=== PATIENT | male | born 1970 | race Caucasian/White ===

== ENCOUNTER 2019-06-13 20:54 | Emergency (ER) | payer BC ==
[2019-06-13 21:04] VITALS: RESP 18; TEMP 98
[2019-06-13 21:13] LABS: Glucose,Whole Blood 109 mg/dL (75-99)
--- NOTE | 2019-06-13 21:47 | XR ---
EXAMINATION TYPE: XR chest 2V DATE OF EXAM: 06/13/2019 COMPARISON: None INDICATION: Chest pain TECHNIQUE: Frontal and lateral views of the chest are obtained. FINDINGS: The heart size is normal. The pulmonary vasculature is normal. The lungs are clear. IMPRESSION: 1. No acute pulmonary process.
[2019-06-13 21:49] LABS: Glucose,Whole Blood 100 mg/dL (75-99)
[2019-06-13 21:50] LABS: Basophils % (A) 0 %; Eosinophils # (A) 0.2 k/uL (0-0.7); Eosinophils % (A) 3 %; HCT 42.2 % (39.0-53.0); HGB 14.5 gm/dL (13.0-17.5); Lymphocytes # (A) 1.5 k/uL (1.0-4.8); Lymphocytes % (A) 20 %; MCH 30.2 pg (25.0-35.0); MCHC 34.3 g/dL (31.0-37.0); MCV 88.1 fL (80.0-100.0); Mean Platelet Volume 8.7; Monocytes # (A) 0.5 k/uL (0-1.0); Monocytes % (A) 7 %; Neutrophils % (A) 67 %; Platelet Count 276 k/uL (150-450); RBC 4.79 m/uL (4.30-5.90); RDW 12.7 % (11.5-15.5); WBC 7.5 k/uL (3.8-10.6)
[2019-06-13 21:52] LABS: ALT 29 U/L (4-49); AST 33 U/L (17-59); African American GFR (CKD) >90 (>60 ml/min/1.73 sqM); Albumin 4.3 g/dL (3.5-5.0); Alkaline Phosphatase 74 U/L (38-126); Anion Gap 9 mmol/L; Blood Urea Nitrogen 13 mg/dL (9-20); Calcium 8.8 mg/dL (8.4-10.2); Carbon Dioxide 24 mmol/L (22-30); Chloride 105 mmol/L (98-107); Glucose 101 mg/dL (74-99); Magnesium 2.1 mg/dL (1.6-2.3); Non-African American GFR(CKD) >90 (>60 ml/min/1.73 sqM); Potassium 3.9 mmol/L (3.5-5.1); Sodium 138 mmol/L (137-145); Total Bilirubin 0.8 mg/dL (0.2-1.3); Total Protein 6.8 g/dL (6.3-8.2)
[2019-06-13 21:59] LABS: Partial Thromboplastin Time 25.3 sec (22.0-30.0); Prothrombin Time 10.1 sec (9.0-12.0)
[2019-06-13 22:19] LABS: Glucose,Whole Blood 100 mg/dL (75-99)
--- NOTE | 2019-06-13 22:25 | ED ---
General Adult HPI - General Chief complaint: Chest Pain Stated complaint: Chest Flutter Time Seen by Provider: 06/13/19 21:05 Source: patient, EMS, RN notes reviewed, old records reviewed Mode of arrival: EMS - History of Present Illness Initial comments: 49-year-old male patient no pertinent past, history presents ED for evaluation of lightheadedness/weakness feeling. 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 He states that at work approximately 1.5 hours prior to presentation he began to feel somewhat dizzy, felt tired, felt that his vision was going in and out of focus. Patient reports he then sat down and as if his heart was racing, denies any chest pain or shortness of breath. Patient reports that he eats for the first time, sat down and called EMS. Was feeling some improvement time there arrived. At the time his blood sugar was 66. Patient was then transported to Hospital. Time of initial evaluation patient is feeling much improved. Systemic: Pt denies fatigue, fever/chills, rash. Pt denies weakness, night sweats, weight loss. Neuro: Pt denies headache, visual disturbances, syncope or pre-syncope. HEENT: Pt denies ocular discharge or irritation, otalgia, rhinorrhea, pharyngitis or notable lymphadenopathy. Cardiopulmonary: Pt denies chest pain, SOB, dyspnea on exertion. Abdominal/GI: Pt denies abdominal pain, n/v/d. : Pt denies dysuria, burning w/ urination, frequency/urgency. Denies new onset urinary or bowel incontinence. MSK: Pt denies myalgia, loss of strength or function in extremities. Neuro: Pt denies new onset weakness, paresthesias. - Related Data Allergies Allergy/AdvReac Type Severity Reaction Status Date / Time iodine AdvReac Anaphylaxis Verified 06/13/19 21:40 Review of Systems ROS Statement: Those systems with pertinent positive or pertinent negative responses have been documented in the HPI. ROS Other: All systems not noted in ROS Statement are negative. Past Medical History Past Medical History: Hypertension History of Any Multi-Drug Resistant Organisms: None Reported Past Surgical History: Orthopedic Surgery Additional Past Surgical History / Comment(s): hernia repair Past Psychological History: No Psychological Hx Reported Smoking Status: Never smoker Past Alcohol Use History: Daily Past Drug Use History: None Reported General Exam - General Exam Comments Initial Comments: Constitutional: NAD, AOX3, Pt has pleasant affect. HEENT: NC/AT, trachea midline, neck supple, no lymphadenopathy. Posterior pharynx non erythematous, without exudates. External ears appear normal, without discharge. Mucous membranes moist. Eyes PERRLA, EOM intact. There is no scleral icterus. No pallor noted. Cardiopulmonary: RRR, no murmurs, rubs or gallops, no JVD noted. Lungs CTAB in anterior and posterior lyons. No peripheral edema. Abdominal exam: Abdomen soft and non-distended. Abdomen non-tender to palpation in all 4 quadrants. Bowel sounds active in LLQ. No hepatosplenomegaly. No ecchymosis Neuro: CN II-XII intact. No nuchal rigidity. No raccon eyes, no echeverria sign, no hemotympanum. No cervical spinal tenderness. MSK: No posterior calf tenderness bilaterally, homans sign negative bilaterally. Posterior tibialis and radial pulse +2 bilaterally. Sensation intact in upper and lower extremities. Full active ROM in upper and lower extremities, 5/5 streg nth. Course Vital Signs 06/13/19 06/13/19 06/13/19 20:59 21:04 23:04 Temperature 98 F Pulse Rate 71 57 L Pulse Rate [ 76 Security Services Manager ] Respiratory 18 18 Rate Blood Pressure 138/84 126/85 O2 Sat by Pulse 98 98 Oximetry Medical Decision Making - Medical Decision Making 49-year-old male patient no pertinent past, history presents ED for evaluation of lightheadedness/weakness feeling. 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 He states that at work approximately 1.5 hours prior to presentation he began to feel somewhat dizzy, felt tired, felt that his vision was going in and out of focus. Patient reports he then sat down and as if his heart was racing, denies any chest pain or shortness of breath. Patient reports that he eats for the first time, sat down and called EMS. Was feeling some improvement time there arrived. At the time his blood sugar was 66. Patient was then transported to Hospital. Time of initial evaluation patient is feeling much improved. Pt VSS, afebrile. Physical exam displayed no acute pathology. EKG is nonischemic. Left investigations are obtained and are non- impressive. Patient declines CT of brain, is asymptomatic at time of physical exam. Patient's symptoms are likely hypoglycemic in nature. Patient was eating prior to EMS arrival his blood sugar was 66 at that time. Does report that he began to feel significant better after he began to eat crackers and jelly. And had not eaten prior to that. Patient will be discharged for follow-up with primary care provider tomorrow and will return to ER if condition worsens in any way. Case discussed in depth with Dr. Higgins. - Lab Data Result diagrams: 06/13/19 21:12 06/13/19 21:12 Lab Results 06/13/19 06/13/19 06/13/19 Range/Units 21:10 21:12 21:12 WBC 7.5 (3.8-10.6) k/uL RBC 4.79 (4.30-5.90) m/uL Hgb 14.5 (13.0-17.5) gm/dL Hct 42.2 (39.0-53.0) % MCV 88.1 (80.0-100.0) fL MCH 30.2 (25.0-35.0) pg MCHC 34.3 (31.0-37.0) g/dL RDW 12.7 (11.5-15.5) % Plt Count 276 (150-450) k/uL Neutrophils % 67 % Lymphocytes % 20 % Monocytes % 7 % Eosinophils % 3 % Basophils % 0 % Neutrophils # 5.0 (1.3-7.7) k/uL Lymphocytes # 1.5 (1.0-4.8) k/uL Monocytes # 0.5 (0-1.0) k/uL Eosinophils # 0.2 (0-0.7) k/uL Basophils # 0.0 (0-0.2) k/uL PT 10.1 (9.0-12.0) sec INR 1.0 (<1.2) APTT 25.3 (22.0-30.0) sec Sodium (137-145) mmol/L Potassium (3.5-5.1) mmol/L Chloride (98-107) mmol/L Carbon Dioxide (22-30) mmol/L Anion Gap mmol/L BUN (9-20) mg/dL Creatinine (0.66-1.25) mg/dL Est GFR (CKD-EPI)AfAm (>60 ml/min/1.73 sqM) Est GFR (CKD-EPI)NonAf (>60 ml/min/1.73 sqM) Glucose (74-99) mg/dL POC Glucose (mg/dL) 109 H (75-99) mg/dL POC Glu Installer Helper Laura Gerardo Calcium (8.4-10.2) mg/dL Magnesium (1.6-2.3) mg/dL Total Bilirubin (0.2-1.3) mg/dL AST (17-59) U/L ALT (4-49) U/L Alkaline Phosphatase (38-126) U/L Total Protein (6.3-8.2) g/dL Albumin (3.5-5.0) g/dL 06/13/19 06/13/19 06/13/19 Range/Units 21:12 21:47 22:17 WBC (3.8-10.6) k/uL RBC (4.30-5.90) m/uL Hgb (13.0-17.5) gm/dL Hct (39.0-53.0) % MCV (80.0-100.0) fL MCH (25.0-35.0) pg MCHC (31.0-37.0) g/dL RDW (11.5-15.5) % Plt Count (150-450) k/uL Neutrophils % % Lymphocytes % % Monocytes % % Eosinophils % % Basophils % % Neutrophils # (1.3-7.7) k/uL Lymphocytes # (1.0-4.8) k/uL Monocytes # (0-1.0) k/uL Eosinophils # (0-0.7) k/uL Basophils # (0-0.2) k/uL PT (9.0-12.0) sec INR (<1.2) APTT (22.0-30.0) sec Sodium 138 (137-145) mmol/L Potassium 3.9 (3.5-5.1) mmol/L Chloride 105 (98-107) mmol/L Carbon Dioxide 24 (22-30) mmol/L Anion Gap 9 mmol/L BUN 13 (9-20) mg/dL Creatinine 0.85 (0.66-1.25) mg/dL Est GFR (CKD-EPI)AfAm >90 (>60 ml/min/1.73 sqM) Est GFR (CKD-EPI)NonAf >90 (>60 ml/min/1.73 sqM) Glucose 101 H (74-99) mg/dL POC Glucose (mg/dL) 100 H 100 H (75-99) mg/dL POC Glu Installer Helper Laura Gerardo Jessica Calcium 8.8 (8.4-10.2) mg/dL Magnesium 2.1 (1.6-2.3) mg/dL Total Bilirubin 0.8 (0.2-1.3) mg/dL AST 33 (17-59) U/L ALT 29 (4-49) U/L Alkaline Phosphatase 74 (38-126) U/L Total Protein 6.8 (6.3-8.2) g/dL Albumin 4.3 (3.5-5.0) g/dL - EKG Data -: EKG Interpreted by Me (and Dr. Higgins) EKG Comments: Ventricular rate 70, MO 176, QRS 84, QT/QTC 396 as 427. Normal sinus rhythm, normal EKG, no concern for acute ischemia. Disposition Clinical Impression: Hypoglycemia, suspected, in hospital patient Disposition: HOME SELF-CARE Condition: Stable Instructions (If sedation given, give patient instructions): Non-diabetic Hypoglycemia (ED) Additional Instructions: Follow-up with primary care provider tomorrow. Return to ER if condition worsens in any way. Continue to eat regular scheduled meals at home. Is patient prescribed a controlled substance at d/c from ED?: No Referrals: Jonathan Ceron MD [Primary Care Provider] - 1-2 days
[2019-06-13 23:04] VITALS: BP 126/85; PULSE 57
== END 2019-06-13 23:27 | disposition home or self-care (01) ==
LOC: EC 20:54
DX: R42 Dizziness and giddiness (principal); R53.83 Other fatigue; H53.8 Other visual disturbances; Z91.048 Other nonmedicinal substance allergy status; Z53.20 Procedure and treatment not carried out because of patient's decision for unspecified reasons
CPT/HCPCS: 36415; 71046; 80053; 83735; 85025; 85610; 85730; 93005; 99285